=== PATIENT | male | born 1960 | race Caucasian/White ===

== ENCOUNTER 2024-01-17 12:40 | Emergency (ER) | payer OTHER, SELFPAY ==
--- NOTE | 2024-01-17 12:42 | ED.URI ---
HPI - URI/Sore Throat General Chief Complaint: Upper Respiratory Infection Stated Complaint: Sinus Infection Symptoms Time Seen by Provider: 01/17/24 13:10 Source: patient, RN notes reviewed and old records reviewed Mode of arrival: ambulatory Limitations: no limitations History of Present Illness HPI Narrative: 63-year-old male presents to the [facility] with headache, alternating ear pain that is intermittent and fatigue. Patient denies fevers, cough, chest pain. No treatment prior to arrival Related Data Home Medications Medication Instructions Recorded Confirmed albuterol sulfate 90 mcg/actuation 1 puff inhalation Q6H 01/17/24 01/17/24 aerosol inhaler (Ventolin HFA) apixaban 5 mg tablet (Eliquis) 5 mg PO DAILY 01/17/24 01/17/24 atorvastatin 20 mg tablet 20 mg PO HS 01/17/24 01/17/24 dapagliflozin propaned 10 1 tablet PO DAILY 01/17/24 01/17/24 mg-metformin ER 1,000 mg tablet,ext rel 24hr (Xigduo XR) ergocalciferol (vitamin D2) 1,250 1,250 mcg PO [id number] 01/17/24 01/17/24 mcg (50,000 unit) capsule esomeprazole magnesium 20 mg 20 mg PO DAILY 01/17/24 01/17/24 capsule,delayed release glimepiride 4 mg tablet 4 mg PO DAILY 01/17/24 01/17/24 lisinopril 2.5 mg tablet 2.5 mg PO DAILY 01/17/24 01/17/24 metoprolol tartrate 50 mg tablet 50 mg PO DAILY 01/17/24 01/17/24 sitagliptin phosphate 100 mg 100 mg PO DAILY 01/17/24 01/17/24 tablet (Januvia) Allergies Allergy/AdvReac Type Severity Reaction Status Date / Time No Known Allergies Allergy Unknown Verified 01/17/24 12:50 Review of Systems Review of Systems: All systems reviewed & are unremarkable except as noted in HPI and below Constitutional: Constitutional: Reports no additional constitutional complaints Eyes: Eyes: Reports no additional eye complaints ENT: Reports as per HPI Cardiovascular: Cardiovascular: Reports no additional cardiovascular complaints, Denies chest pain and Denies dyspnea Respiratory: Respiratory: Reports no additional respiratory complaints, Denies chest congestion, Denies cough and Denies dyspnea Gastrointestinal: Gastrointestinal: Reports no additional gastrointestinal complaints, Denies abdominal pain, Denies nausea and Denies vomiting Musculoskeletal: Musculoskeletal: Reports no additional musculoskeletal complaints Integumentary/Breasts: Skin/Breast: Reports system reviewed and no additional complaints, except as docu Neurologic: Reports system reviewed and no additional complaints, except as documented Psychiatric: Psychiatric: Reports no additional psychiatric complaints Allergic/Immunologic: Allergic/Immunologic: Reports no additional allergic/immunologic complaints PMFSH Family History Family History Mother Hypertension Family history of arthritis Family history of Alzheimer's disease Father Carcinoma of colon Family history of atrial fibrillation Diabetes mellitus Family history of cardiovascular disease Sibling Family history of attention deficit hyperactivity disorder (ADHD) Social History Social History Smoking status: Never smoker Second hand tobacco smoke exposure: No Comments At the time of my signature, I reviewed and agree with the nursing past medical, surgical, social, and family history. There is no relevant family history pertinent to the patient complaint. Exam Const: General: cooperative, healthy appearing, comfortable, no acute distress, well developed, alert and well nourished Nutritional Appearance: well nourished Orientation/consciousness: patient oriented x3 Limitations: no limitations HENMT: Head: normal to inspection Ears: hearing grossly normal bilaterally, external ears normal, TM normal on the right, mastoids normal, no periauricular adenopathy and Abnormal EAC present cerumen impaction on the left Face/Nose/Sinus: Normal external nose present, Normal nares
[2024-01-17 12:53] VITALS: BP 116/94; PULSE 86; RESP 16; TEMP 37.2; O2SAT 98
[2024-01-17 12:55] VITALS: BP 116/94; PULSE 86; RESP 16; TEMP 37.2; O2SAT 98
== END 2024-01-17 13:36 | disposition home or self-care (01) ==
PROVIDERS: Emergency Provider Nurse Practitioner
DX: J06.9 Acute upper respiratory infection, unspecified (principal); H61.22 Impacted cerumen, left ear; Z79.01 Long term (current) use of anticoagulants; I48.91 Unspecified atrial fibrillation; E78.00 Pure hypercholesterolemia, unspecified; E11.9 Type 2 diabetes mellitus without complications; Z95.0 Presence of cardiac pacemaker
CPT/HCPCS: 69210; 99212; G0463